=== PATIENT | female | born 1965 | race Caucasian/White ===

== ENCOUNTER 2020-12-27 16:30 | Emergency (ER) | payer MEDICAID, SELFPAY ==
[2020-12-27 16:52] VITALS: BP 139/88; PULSE 103; RESP 16; TEMP 36.2; O2SAT 99
[2020-12-27 16:57] VITALS: BP 139/88; PULSE 103; RESP 16; TEMP 36.2; O2SAT 99
== END 2020-12-27 18:30 | disposition left against medical advice (07) ==
PROVIDERS: Emergency Provider Nurse Practitioner Family
DX: Z53.21 Procedure and treatment not carried out due to patient leaving prior to being seen by health care provider (principal)
CPT/HCPCS: 99199